=== PATIENT | female | born 1975 | race Hispanic/Latino ===

== ENCOUNTER → 2025-03-19 | Day surgery (SDC) | payer BC, OTHER ==
[~2025-03-19] MED LIST: AMLODIPINE BESY10 MG PO; ASPIR 8181 MG PO; CO Q 10 PO; DICYCLOMINE HCL20 MG PO; GLUCAGON FOR INJ 1 MG VIAL ONE; JUVEN PACKET1 EACH PO; MAGNESIUM PO; MULTI-VITAMIN1 EACH PO; NEXIUM20 MG PO; PROPOFOL IV EMULSION 50 ML IV ONE; TOPROL XL50 MG PO; VITAMIN B COMPLEX PO; VITAMIN C PO; VITAMIN D PO; [UNRECOGNIZED DRUG - OTHER] PO
[2025-03-19] MEDS: LACTATED RINGER'S 1,000 ML ONE (09:36)
[2025-03-19 11:54] VITALS: BP 126/71; PULSE 84; RESP 17; O2SAT 97
[2025-03-19 13:20] LABS: CDIFF AG QUIK CHEK NEGATIVE (NEGATIVE); CDIFF TOX QUIK CHEK NEGATIVE (NEGATIVE)
[2025-03-25 17:11] LABS: ENDOMYSIAL ANTIBODIES, IGA Negative (Negative)
[2025-03-25 18:02] LABS: TISSUE TRANSGLUTAMINASE IGA AB <2 U/mL (0-3)
== END | disposition home or self-care (01) ==
LOC: OR 08:13
PROVIDERS: ATTEND Internal Medicine Gastroenterology
DX: K21.00 Gastro-esophageal reflux disease with esophagitis, without bleeding (principal); K29.70 Gastritis, unspecified, without bleeding; K29.80 Duodenitis without bleeding; K31.7 Polyp of stomach and duodenum; K64.8 Other hemorrhoids; I10 Essential (primary) hypertension; D64.89 Other specified anemias; Z86.0100 Personal history of colon polyps, unspecified; Z68.37 Body mass index [BMI] 37.0-37.9, adult; Z90.49 Acquired absence of other specified parts of digestive tract; Z87.442 Personal history of urinary calculi; Z01.818 Encounter for other preprocedural examination; Z01.810 Encounter for preprocedural cardiovascular examination; Z01.812 Encounter for preprocedural laboratory examination; Z80.0 Family history of malignant neoplasm of digestive organs
CPT/HCPCS: 43239; 45380; 45385; 81025; 82784; 83516; 83630; 83993; 86256; 87045; 87177; 87324; 87328; 87449; 93005; J1610; J2470; J2704; J7121; 45378